=== PATIENT | female | born 1975 | race Caucasian/White ===

== ENCOUNTER 2017-03-10 11:31 | Emergency (ER) | payer OTHER ==
[~2017-03-10] VITALS: Ht 162.6 cm; Wt 110.0 kg
[2017-03-10] MEDS ORDERED: ONDANSETRON HCL 4MG/2ML VIAL IV STA (11:59)
[2017-03-10] MEDS ORDERED: SODIUM CHLORIDE 0.9% 1,000 ML IV ONE (11:59)
[2017-03-10] MEDS ORDERED: MECLIZINE 25MG TABLET PO ONE (12:00)
[2017-03-10 14:20] VITALS: BP 118/62
== END 2017-03-10 14:21 | disposition home or self-care (01) ==
LOC: ER 11:42
DX: R42 Dizziness and giddiness (principal)
CPT/HCPCS: 96361; 96374; 99284; J2405; J7030; Z7610; J8597